=== PATIENT | male | born 1935 | race Caucasian/White ===

== ENCOUNTER 2016-03-04 09:50 | Outpatient (CLI) ==
[2015-04-26 15:14] VITALS: BMI 25.9
--- NOTE | 2016-03-04 14:27 | MRI ---
EXAM: MRI of the left shoulder without contrast COMPARISON: Left shoulder radiographs 06/08/2015. HISTORY: Left shoulder pain with limited range of motion. TECHNIQUE: Multiplanar noncontrast MR images of the left shoulder were acquired using a 1.2 Mag m agnet. FINDINGS: There is marked supraspinatus as well as moderate infraspinatus and subscapularis tendino sis. There is a full-thickness, essentially full width tear of the insertional fibers of the supras pinatus with most thin residual intact fibers at the level of the posterior insertional fibers. The re is up to 1.3 cm retraction of the torn bursal surface fibers and up to 3.4 cm retraction of the t orn articular surface fibers anteriorly. Fluid in the overlying subacromial/subdeltoid bursa. Mini mal linear intrasubstance fissuring/tearing of the anterosuperior portion of the infraspinatus. Part ial-thickness/intrasubstance tear of the superior insertional fibers of the subscapularis. Small deg enerative cysts and bone spurs involving the greater tuberosity attachment the rotator cuff. Limited assessment glenoid labrum on this non arthrographic study. Diminished size of the glenoid l abrum superiorly and posteriorly related to degenerative fraying/degenerative type tear with more fo naina tear extending along the chondrolabral junction superiorly and posteriorly. Glenohumeral joint osteoarthrosis with most severe thinning of the cartilage along the posterior glenoid with subchondr al cystic change and marginal osteophytes. Small joint effusion. The long head of the biceps is diminished in size within its intra-articular and bicipital groove se gments related to a partial tear with medial subluxation of the tendon remnant within its proximal b icipital groove segment. The tendon is subluxed into the superior insertional fibers of the subscapu yaritza. Hypertrophic degenerative changes of the acromioclavicular joint with most pronounced osteophytes do rsally. No evidence of an os acromiale or abnormal widening of the acromioclavicular joint space. No soft tissue mass identified. IMPRESSION: 1. Marked rotator cuff tendinosis. Full-thickness, essentially full width tear of the supraspinatu s as described. Partial tearing of the infraspinatus and subscapularis. 2. 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 3. Intrasubstance degeneration and suspected superimposed tear of the glenoid labrum on this non ar thrographic study. 4. Tendinosis/partial tear and medial subluxation of the long head of the biceps. 5. Hypertrophic degenerative changes of the acromioclavicular joint. 6. Fluid in the subacromial/subdeltoid bursa.
== END 2016-03-04 09:51 | disposition home or self-care (01) ==
LOC: RAD 09:50
PROVIDERS: ATTEND Family Medicine
DX: M25.512 Pain in left shoulder (principal)

== ENCOUNTER 2017-06-08 08:22 | Day surgery (SDC) ==
[2015-04-26 15:14] VITALS: BMI 25.9
[2017-06-08] MEDS: LIDOCAINE 1% 20 ML MDV ID STA ×2 (10:00→10:30)
[2017-06-08] MEDS ORDERED: DIPRIVAN 20 ML VIAL IVP ONE (10:15)
[2017-06-08] MEDS ORDERED: VERSED ONE (10:15)
[2017-06-08 11:44] VITALS: BP 110/65; TEMP 98.6
--- NOTE | 2017-06-09 10:31 | OP ---
PROCEDURE: COLONOSCOPY TO THE CECUM AND SNARE POLYPECTOMY. ENDOSCOPIST: Aris TAYLOR M.D. INDICATION: HISTORY OF POLYPS INSTRUMENT: [id number]. MEDICATION: PER ANESTHESIA. PROCEDURE: The patient was positioned for colonoscopy. The digital rectal exam was negative. The colonoscope was inserted through the anus and advanced to the cecum. The cecum was identified using the ileocecal valve and the appendiceal orifice as landmarks. The scope was slowly withdrawn through an adequately prepped colon. Knapp Bowel Prep Score equals 9. A small polyp in the ascending colon is removed using scare cautery. A small polyp at 20cm removed using snare cautery. Multiple small rectal sigmoid polyps were noted consistent with hyperplastic polyps. No other abnormalities were noted. Retroflex exam with unremarkable. He did have mild diverticular disease of the left colon. Withdraw time is 11 minutes and 30 seconds. PLAN: 1. Given his age we will suggest repeat colonoscopy on an as needed basis. CC: Dr. Vail. [email or web address]
== END 2017-06-08 11:10 | disposition home or self-care (01) ==
LOC: SURG 08:22
PROVIDERS: ATTEND Internal Medicine Gastroenterology
DX: Z09 Encounter for follow-up examination after completed treatment for conditions other than malignant neoplasm (principal); Z86.010 Personal history of colon polyps; K63.5 Polyp of colon; K57.30 Diverticulosis of large intestine without perforation or abscess without bleeding